=== PATIENT | male | born 1960 | race Caucasian/White ===

== ENCOUNTER → 2021-07-24 10:32 | Outpatient (CLI) | payer BC, SELFPAY ==
--- NOTE | 2021-07-24 | DI.CT.S_ITS ---
PROCEDURE: CT SOFT TISSUE NECK W CON INDICATIONS: MASS OF RIGHT PAROTID GLAND TECHNIQUE: After the administration of intravenous contrast, 3.0 mm axial sections acquired from the sella to the aortic arch. Additional oblique axial 3.0 mm sections acquired through the pharynx. 3 mm thick coronal and sagittal reformats were generated. For radiation dose reduction, the following was used: automated exposure control. COMPARISON: None. FINDINGS: Image quality: Excellent. Lymph nodes: No enlarged lymph nodes seen throughout the neck. Vessels: Visualized vasculature appears patent. Neck spaces: The oropharynx, nasopharynx, and pharynx demonstrate no mucosal lesions. The vocal cords, false vocal cords, pyriform sinuses, epiglottis, vallecula, and tongue base all appear normal. Extramucosal spaces appear unremarkable. Glands: In this patient with this given history, scrutiny is given to the area of clinical concern involving the right parotid gland, as designated by the patient. Within this region, there is a faint area increased enhancement along the inferior aspect of the parotid gland that measures 2.1 x 1.3 cm in greatest axial dimension, with a craniocaudal extent of 2.3 cm. No additional potential parotid masses are seen. The left parotid gland is unremarkable. The submandibular glands appear normal. Thyroid gland demonstrates no significant abnormality. Miscellaneous: Visualized brain and orbits appear normal. Likely scarring changes can be seen involving the lung apices. Superficial soft tissues appear normal. Bones: No suspicious bony lesions. Visualized sinuses and mastoids appear unremarkable. IMPRESSION: Apparent mildly hyperenhancing mass at the inferior aspect of the right parotid gland. However, this is not well seen and is potentially artifactual. Please consider a follow-up ultrasound for further evaluation. If a mass is seen by ultrasound, please consider percutaneous fine needle aspiration. Dictated by: Alexander Davison M.D. on 07/24/2021 at 10:49 Approved by: Alexander Davison M.D. on 07/24/2021 at 10:53
== END ==
PROVIDERS: Referring Provider Otolaryngology; Visit Provider Otolaryngology
DX: K11.8 Other diseases of salivary glands (principal)
CPT/HCPCS: 70491; Q9967

== ENCOUNTER → 2023-07-15 14:38 | Outpatient (CLI) | payer BC, SELFPAY ==
--- NOTE | 2023-07-15 | DI.RAD.S_ITS ---
PROCEDURE: XR CHEST 2V INDICATIONS: COUGH TECHNIQUE: 2 views of the chest were acquired. COMPARISON: None. FINDINGS: Surgical changes and devices: None. Lungs and pleura: Lungs are clear. No pleural effusions or pneumothorax. Mediastinum: Mediastinal contours are normal. Heart size is normal. Bones and chest wall: No suspicious bony abnormalities. Soft tissues appear unremarkable. IMPRESSION: No acute cardiopulmonary abnormality is seen. Approved by: Bruno Britton M.D. on 07/15/2023 at 18:05
== END ==
PROVIDERS: PCP Obstetrics & Gynecology Gynecology; Referring Provider Obstetrics & Gynecology Gynecology; Visit Provider Obstetrics & Gynecology Gynecology
DX: R05.9 Cough, unspecified (principal)
CPT/HCPCS: 71046

== ENCOUNTER 2024-01-20 07:36 | Day surgery (SDC) | payer BC, SELFPAY ==
[2024-01-20 07:56] VITALS: BP 150/78; PULSE 64; RESP 18; TEMP 36.1; O2SAT 97
[2024-01-20] MEDS: LACTATED RINGERS 1,000 ML 42 ML IV (08:05)
--- NOTE | 2024-01-20 08:13 | PM.HP.1 ---
History of Present Illness History of Present Illness Date Patient Seen: 01/20/24 Time Patient Seen: 08:13 Chief complaint: SDC Narrative: Last scope was 6 years ago. Polyps were found at that time. No symptoms PFSH Social History alcohol intake: current Meds Home Medications and Allergies Home Medications Medication Instructions Recorded Confirmed Type No Known Home Medications 01/20/24 01/20/24 History Allergies Allergy/AdvReac Type Severity Reaction Status Date / Time Penicillins Allergy Anaphylaxis Verified 01/20/24 07:55 Review of Systems Review of Systems ROS: Yes All systems reviewed with the patient and are negative except as otherwise documented Exam Vital Signs (past 8 hours): - 01/20/24 07:56 Temperature 97 F L Pulse Rate 64 Respiratory Rate 18 Blood Pressure 150/78 H Pulse Oximetry 97 Oxygen Delivery Method Room Air Oxygen Flow Rate 0 Oxygen Delivery Method Room Air Oxygen Flow Rate 0 Const General: cooperative and comfortable Nutritional Appearance: thin HENMT Head: normal to inspection, normocephalic and atraumatic Ears: hearing grossly normal bilaterally Face and sinus: normal facial exam Eyes General: appearance normal, both eyes and all related structures Sclera: sclerae normal Neck Neck: trachea midline and No JVD Resp Effort & Inspection: normal respiratory effort and able to speak in complete sentences Cardio Rate: regular rate Rhythm: regular rhythm GI Inspection: normal to inspection Palpation: soft Skin General: elasticity normal and turgor normal Neuro General: patient alert, patient awake and patient oriented x3 Cranial Nerves: tongue midline Psych Appearance: grossly normal Mental Status: mental status grossly normal Judgment: judgment good Assessment & Plan Assessment & Plan narrative: History of colon polyps Plan: colonoscopy with anesthesia Time Spent With Patient Time with patient: less than 30 minutes
--- NOTE | 2024-01-20 08:38 | PM.OP.COLON ---
Operative Date/Time/Diagnoses Date of procedure: 01/20/24 Time of procedure: 08:38 Pre-op diagnosis: History colon polyps Post-op diagnosis: same Procedure & Clinicians Study performed: Colonoscopy with anesthesia Same procedure as scheduled: Yes Indications: History of colon polyps Surgeon: Margarette Moore Procedure Notes Procedure in detail: Preop diagnosis: History colon polyps Postop diagnosis: Same Operative procedure: Colonoscopy with anesthesia Surgeon: Catina Moore MD Findings: Normal colonoscopy. No polyps, no diverticulosis. Procedure: Patient placed in a lateral position. Rectal exam performed showing normal tone no masses. Colonoscope inserted into the rectum and advanced to ileocecal valve with minimal difficulty. Insufflation extraction scope and the above findings. Retroflex was included in the rectum. Impression: No polyps, no diverticuli. Plan: Repeat colonoscopy in 5 years due to history of colon polyps Specimen(s): none sent Complications: none Post-procedure Recommendations: Colonoscopy in 5 years Follow up: as needed Disposition: PACU
[2024-01-20 08:41] VITALS: BP 91/48; PULSE 63; RESP 18; TEMP 36.1; O2SAT 94
[2024-01-20 08:46] VITALS: BP 97/48; PULSE 58; RESP 18; O2SAT 96
[2024-01-20 08:51] VITALS: BP 106/57; PULSE 57; RESP 18; O2SAT 96
[2024-01-20 08:56] VITALS: BP 102/54; PULSE 51; RESP 18; O2SAT 96
[2024-01-20 09:09] VITALS: BP 137/68; PULSE 58; RESP 18; TEMP 36.3; O2SAT 98
== END 2024-01-20 09:16 | disposition home or self-care (01) ==
PROVIDERS: PCP Obstetrics & Gynecology Gynecology; Referring Provider Surgery; Visit Provider Surgery
PROC: 0DJD8ZZ Inspection of Lower Intestinal Tract, Via Natural or Artificial Opening Endoscopic (ICD-10-PCS; CPT 45378; principal; 2024-01-20 08:15)
DX: Z12.11 Encounter for screening for malignant neoplasm of colon (principal); Z86.010 Personal history of colon polyps
CPT/HCPCS: 45378; J2704